=== PATIENT | female | born 1990 ===

== ENCOUNTER 2020-04-09 08:06 | Emergency (ER) | payer OTHER ==
[~2020-04-09] VITALS: Ht 154.9 cm; Wt 93.6 kg
[2020-04-09] MEDS ORDERED: PERTUSS(ACELL),DIPH,TET VAC/PF 0.5 ML VIAL IM ONE (08:30)
[2020-04-09] MEDS ORDERED: BACITRACIN 0.9 GM PACKET OINTMENT TP ONE (08:30)
[2020-04-09 09:18] VITALS: BP 124/72
== END 2020-04-09 09:15 | disposition home or self-care (01) ==
LOC: EMS 08:07
DX: S40.812A Abrasion of left upper arm, initial encounter (principal); V49.9XXA Car occupant (driver) (passenger) injured in unspecified traffic accident, initial encounter; Y93.89 Activity, other specified; Y92.488 Other paved roadways as the place of occurrence of the external cause; Y99.8 Other external cause status
CPT/HCPCS: 90471; 90715